=== PATIENT | female | born 1990 | race Caucasian/White ===

== ENCOUNTER 2018-02-15 11:24 | Observation (INO) | payer MEDICAID ==
[~2018-02-15] VITALS: Ht 157.5 cm; Wt 99.8 kg
== END 2018-02-15 14:30 | disposition home or self-care (01) ==
LOC: L&D 11:24
PROVIDERS: ADMIT Obstetrics & Gynecology; ATTEND Obstetrics & Gynecology
DX: O62.9 Abnormality of forces of labor, unspecified (principal); Z3A.35 35 weeks gestation of pregnancy
CPT/HCPCS: 76805; 99281; G0378